=== PATIENT | male | born 1975 | race Hispanic/Latino ===

== ENCOUNTER 2020-03-19 16:48 | Emergency (ER) | payer OTHER, SELFPAY ==
[2020-03-20 14:55] LABS: SARS-CoV-2 MS2 Positive; SARS-CoV-2 N Gene Negative; SARS-CoV-2 S Gene Negative; SARS-CoV-2 orf1ab Negative
== END 2020-03-19 17:34 | disposition home or self-care (01) ==
LOC: ERS 16:48
DX: Z20.828 Contact with and (suspected) exposure to other viral communicable diseases (principal); I25.2 Old myocardial infarction; E11.9 Type 2 diabetes mellitus without complications; I11.0 Hypertensive heart disease with heart failure; I50.9 Heart failure, unspecified; F32.9 Major depressive disorder, single episode, unspecified; F41.9 Anxiety disorder, unspecified; F17.210 Nicotine dependence, cigarettes, uncomplicated
CPT/HCPCS: 87635; 99283; U0003

== ENCOUNTER 2022-03-14 21:35 | Observation (INO) | payer SELFPAY ==
[~2022-03-14 21:35] MED LIST: Iopamidol-370 76% 500 ML 1 ML ONE
[2022-03-14] MEDS ORDERED: Ondansetron PF 4 MG/2 ML Vial ONE (22:16)
[2022-03-14 22:27] LABS: #Basophils 0.1 thou/uL (0.0-0.2); #Eosinphils 0.2 thou/uL (0.0-0.7); #Lymphocytes 2.1 thou/uL (1.20-3.40); #Monocytes 0.8 thou/uL (0.11-0.59); #Neutrophils 5.9 thou/uL (1.40-6.50); %Basophils 0.9 % (0.0-1.0); %Eosinophils 2.7 % (0.0-10.0); %Lymphocytes 23.2 % (21.0-51.0); %Neutrophils 64.2 % (42.0-75.0); Hemoglobin 19.2 g/dL (14.0-18.0); Mean Corpuscular HGB CONC 33.1 g/dL (32.0-36.0); Mean Corpuscular Hemoglobin 30.3 pg (27.0-31.0); Mean Corpuscular Volume 91.6 fL (78.0-98.0); Mean Platelet Volume 7.9 fL (7.4-10.4); Platelet Count 271 thou/uL (130-400); RBC Distribution Width 12.7 % (11.5-14.5); Red Blood Cell (RBC) Count 6.33 mill/uL (4.70-6.10); White Blood Cell (WBC) Count 9.3 thou/uL (4.8-10.8)
[2022-03-14 22:47] LABS: ALT (SGPT) 24 U/L (8-55); AST (SGOT) 18 U/L (5-34); Albumin 4.4 g/dL (3.5-5.0); Alkaline Phosphatase 72 U/L (40-110); Anion Gap 17 mmol/L (10-20); BUN (Urea Nitrogen) 16 mg/dL (8.9-20.6); Bilirubin, Total 0.9 mg/dL (0.2-1.2); Calc. Creatinine Clearance 0 mL/min (70-130); Calcium 9.5 mg/dL (7.8-10.44); Carbon Dioxide 24 mmol/L (22-29); Chloride 104 mmol/L (98-107); Estimated GFR 82; Globulin 3.2 g/dL (2.4-3.5); Glucose 167 mg/dL (70-105); Lipase 18 U/L (8-78); Potassium 3.7 mmol/L (3.5-5.1); Protein, Total 7.6 g/dL (6.0-8.3); Sodium 141 mmol/L (136-145)
[2022-03-14 23:00] LABS: Bacteria/HPF None Seen HPF (None Seen); Bilirubin Negative (Negative); Blood, Urine Negative (Negative); Clarity Clear (Clear); Glucose, Urine (Dipstick) Normal (Negative); Ketone, Urine Trace mg/dL (Negative); Leukocyte Negative Leu/uL (Negative); Nitrite Negative (Negative); Protein, Urine (Dipstick) 100 mg/dL (Neg-Trace); RBC/HPF 0-3 HPF (0-3); Specific Gravity, Urine 1.034 (1.002-1.036); Squamous Epithelial 0-3 HPF (0-3); WBC/HPF 0-3 HPF (0-3)
[2022-03-14] MEDS ORDERED: Aspirin Chewable 81 MG TAB ONE (23:39)
[2022-03-15] MEDS ORDERED: Dextrose 5% in Water 1,000 ML IV PRN (01:39)
[2022-03-15] MEDS ORDERED: HumaLOG 300 UNITS/3 ML VIAL SC PRN ×2 (01:39)
[2022-03-15] MEDS ORDERED: Nitroglycerin 0.4 MG TAB (25 Tab Bottle) SL PRN (01:39)
[2022-03-15] MEDS ORDERED: Dextrose 50% Abboject 50 ML SYRINGE SLOW IVP PRN (01:39)
[2022-03-15 01:45] LABS: Troponin I 0.013 ng/mL (< 0.028)
[2022-03-15] MEDS ORDERED: Acetaminophen 325 MG TAB PO PRN (02:02)
[2022-03-15] MEDS ORDERED: Ondansetron ODT 4 MG TAB PO PRN (02:02)
[2022-03-15] MEDS ORDERED: Ondansetron PF 4 MG/2 ML Vial IVP PRN (02:02)
[2022-03-15] MEDS ORDERED: Electrolyte Replacement Protocol 1 EACH FS SCH (02:15)
[2022-03-15 04:25] LABS: #Basophils 0.1 thou/uL (0.0-0.2); #Eosinphils 0.3 thou/uL (0.0-0.7); #Lymphocytes 2.3 thou/uL (1.20-3.40); #Monocytes 0.9 thou/uL (0.11-0.59); #Neutrophils 4.8 thou/uL (1.40-6.50); %Basophils 0.9 % (0.0-1.0); %Eosinophils 3.7 % (0.0-10.0); %Lymphocytes 27.9 % (21.0-51.0); %Monocytes 10.2 % (0.0-10.0); %Neutrophils 57.2 % (42.0-75.0); Hemoglobin 18.2 g/dL (14.0-18.0); Mean Corpuscular HGB CONC 33.1 g/dL (32.0-36.0); Mean Corpuscular Hemoglobin 30.6 pg (27.0-31.0); Mean Corpuscular Volume 92.4 fL (78.0-98.0); Mean Platelet Volume 7.7 fL (7.4-10.4); Platelet Count 257 thou/uL (130-400); RBC Distribution Width 12.6 % (11.5-14.5); Red Blood Cell (RBC) Count 5.95 mill/uL (4.70-6.10); White Blood Cell (WBC) Count 8.3 thou/uL (4.8-10.8)
[2022-03-15 04:32] LABS: Hemoglobin A1c 8.1 % (4.0-6.0)
[2022-03-15 04:46] VITALS: BMI 40.4
[2022-03-15 04:53] LABS: Troponin I 0.016 ng/mL (< 0.028)
[2022-03-15 04:56] LABS: Anion Gap 13 mmol/L (10-20); BUN (Urea Nitrogen) 14 mg/dL (8.9-20.6); Calc. Creatinine Clearance 169 mL/min (70-130); Carbon Dioxide 26 mmol/L (22-29); Cardiac Risk 5.4 (Less than 4.5); Chloride 107 mmol/L (98-107); Cholesterol 172 mg/dl (< 200 Desired); Estimated GFR 99; Glucose 125 mg/dL (70-105); HDL Cholesterol 32 mg/dL (>60 Neg Risk); LDL Cholesterol, Calculated 112 mg/dL; Potassium 3.8 mmol/L (3.5-5.1); Sodium 142 mmol/L (136-145); Triglycerides 139 mg/dL (Less than 150)
[2022-03-15] MEDS: hydrALAZINE 20 MG/ML VIAL SLOW IVP PRN (05:38)
[2022-03-15] MEDS: Nicotine 14 MG PATCH TD PRN (05:39)
[2022-03-15] MEDS ORDERED: Magnesium 2 GM/50 ML(in water) 2 GM in Premix Bag 1 BAG IVPB SCH (06:00)
[2022-03-15] MEDS ORDERED: Regadenoson 0.4 MG/5 ML SYRINGE ONE ×2 (08:00→09:06)
[2022-03-15] MEDS ORDERED: Aspirin Chewable 81 MG TAB PO SCH (09:00)
[2022-03-15] MEDS: Carvedilol 25 MG TAB PO SCH ×2 (10:50→17:39)
[2022-03-15] MEDS: FLUoxetine HCl 10 MG CAP PO SCH (10:50)
[2022-03-15] MEDS: Aspirin 81 mg Enteric Coated Tablet PO SCH (10:50)
[2022-03-15] MEDS: metFORMIN 500 MG TAB PO SCH ×2 (10:50→17:39)
[2022-03-15] MEDS: Enoxaparin Sodium 40 MG/0.4 ML SYRINGE SC SCH (10:51)
[2022-03-15] MEDS ORDERED: Simvastatin 10 MG TAB PO SCH (21:00)
[2022-03-16] MEDS: hydrALAZINE 20 MG/ML VIAL SLOW IVP PRN ×2 (00:26→04:48)
[2022-03-16 05:21] LABS: #Eosinphils 0.4 thou/uL (0.0-0.7); #Monocytes 0.6 thou/uL (0.11-0.59); #Neutrophils 5.2 thou/uL (1.40-6.50); %Basophils 0.5 % (0.0-1.0); %Eosinophils 4.9 % (0.0-10.0); %Lymphocytes 24.2 % (21.0-51.0); %Monocytes 7.5 % (0.0-10.0); %Neutrophils 62.9 % (42.0-75.0); Hemoglobin 17.4 g/dL (14.0-18.0); Mean Corpuscular HGB CONC 31.2 g/dL (32.0-36.0); Mean Corpuscular Hemoglobin 29.5 pg (27.0-31.0); Mean Corpuscular Volume 94.5 fL (78.0-98.0); Mean Platelet Volume 7.8 fL (7.4-10.4); Platelet Count 267 thou/uL (130-400); RBC Distribution Width 12.6 % (11.5-14.5); Red Blood Cell (RBC) Count 5.89 mill/uL (4.70-6.10); White Blood Cell (WBC) Count 8.3 thou/uL (4.8-10.8)
[2022-03-16 05:50] LABS: Anion Gap 14 mmol/L (10-20); BUN (Urea Nitrogen) 15 mg/dL (8.9-20.6); Calc. Creatinine Clearance 169 mL/min (70-130); Calcium 8.8 mg/dL (7.8-10.44); Carbon Dioxide 24 mmol/L (22-29); Chloride 105 mmol/L (98-107); Estimated GFR 99; Glucose 154 mg/dL (70-105); Sodium 139 mmol/L (136-145)
[2022-03-16] MEDS: metFORMIN 500 MG TAB PO SCH ×2 (08:05→16:14)
[2022-03-16] MEDS: Enoxaparin Sodium 40 MG/0.4 ML SYRINGE SC SCH (08:05)
[2022-03-16] MEDS: FLUoxetine HCl 10 MG CAP PO SCH (08:05)
[2022-03-16] MEDS: Aspirin 81 mg Enteric Coated Tablet PO SCH (08:05)
[2022-03-16] MEDS: Carvedilol 25 MG TAB PO SCH ×2 (08:05→16:14)
[2022-03-16] MEDS: Nicotine 14 MG PATCH TD PRN (14:21)
[2022-03-16 16:07] VITALS: BP 179/80; TEMP 97.6
[2022-03-16] MEDS ORDERED: Atorvastatin Calcium 10 MG TAB PO SCH (21:00)
== END 2022-03-16 17:35 | disposition home or self-care (01) ==
LOC: ERS 21:35 → NEURO 03-15 00:35
PROVIDERS: ADMIT Student in an Organized Health Care Education/Training Program; ATTEND Internal Medicine
DX: U07.1 COVID-19 (principal); I42.8 Other cardiomyopathies; I11.0 Hypertensive heart disease with heart failure; I50.22 Chronic systolic (congestive) heart failure; I25.2 Old myocardial infarction; E11.9 Type 2 diabetes mellitus without complications; E78.5 Hyperlipidemia, unspecified; G47.30 Sleep apnea, unspecified; F17.210 Nicotine dependence, cigarettes, uncomplicated; Z79.4 Long term (current) use of insulin; Z79.82 Long term (current) use of aspirin; Z79.84 Long term (current) use of oral hypoglycemic drugs; Z79.899 Other long term (current) drug therapy
CPT/HCPCS: 36415; 36416; 71045; 74177; 78452; 80048; 80053; 80061; 81003; 81015; 83036; 83690; 83735; 83880; 84443; 84484; 85025; 93005; 93017; 93306; 94760; 96372; 96374; 96375; 96376; A9500; G0378; J0360; J1650; J1815; J2405; J2785; J3475; Q9967; U0003; U0005

== ENCOUNTER 2023-03-05 21:04 | Inpatient (IN) | payer OTHER ==
[2023-03-05] MEDS ORDERED: Nitroglycerin 2% Ointment 1 INCH/1 GM Packet ONE (21:50)
[2023-03-05 21:56] LABS: #Basophils 0.1 thou/uL (0.0-0.2); #Eosinphils 0.4 thou/uL (0.0-0.7); #Monocytes 0.8 thou/uL (0.11-0.59); #Neutrophils 7.8 thou/uL (1.40-6.50); %Basophils 0.7 % (0.0-1.0); %Eosinophils 3.4 % (0.0-10.0); %Lymphocytes 14.9 % (21.0-51.0); %Monocytes 7.6 % (0.0-10.0); %Neutrophils 73.1 % (42.0-75.0); Hemoglobin 16.5 g/dL (14.0-18.0); Mean Corpuscular HGB CONC 34.4 g/dL (32.0-36.0); Mean Corpuscular Hemoglobin 29.3 pg (27.0-31.0); Mean Corpuscular Volume 85.1 fl (78.0-98.0); Mean Platelet Volume 10.2 fL (7.4-10.4); Platelet Count 363 10x3/uL (130-400); RBC Distribution Width 12.1 % (11.5-14.5); Red Blood Cell (RBC) Count 5.64 mill/uL (4.70-6.10); White Blood Cell (WBC) Count 10.7 10x3/uL (4.8-10.8)
[2023-03-05 22:20] LABS: ALT (SGPT) 17 U/L (8-55); AST (SGOT) 12 U/L (5-34); Albumin 3.8 g/dL (3.5-5.0); Alkaline Phosphatase 124 U/L (40-110); Anion Gap 15 mmol/L (10-20); BUN (Urea Nitrogen) 12 mg/dL (8.9-20.6); Bilirubin, Total 0.5 mg/dL (0.2-1.2); Calc. Creatinine Clearance 0 mL/min (70-130); Calcium 9.1 mg/dL (7.8-10.44); Carbon Dioxide 23 mmol/L (22-29); Chloride 100 mmol/L (98-107); Estimated GFR 101; Globulin 2.9 g/dL (2.4-3.5); Potassium 3.8 mmol/L (3.5-5.1); Protein, Total 6.7 g/dL (6.0-8.3); Sodium 134 mmol/L (136-145)
[2023-03-05 22:22] LABS: Glucose 447 mg/dL (70-105)
[2023-03-05 22:40] LABS: CKMB 1.8 ng/mL (0-6.6)
[2023-03-05] MEDS ORDERED: Aspirin Chewable 81 MG TAB ONE (23:15)
[2023-03-06] MEDS ORDERED: Calcium Carbonate 500 MG ChewTAB PO PRN (00:19)
[2023-03-06] MEDS ORDERED: Nitroglycerin 0.4 MG TAB (25 Tab Bottle) SL PRN (00:19)
[2023-03-06] MEDS ORDERED: Dextrose 5% in Water 1,000 ML IV PRN (00:19)
[2023-03-06] MEDS ORDERED: Glucagon 1 MG/ML KIT IM PRN (00:19)
[2023-03-06] MEDS ORDERED: Ondansetron ODT 4 MG TAB PO PRN (00:19)
[2023-03-06] MEDS ORDERED: Dextrose 50% Abboject 50 ML SYRINGE SLOW IVP PRN (00:19)
[2023-03-06] MEDS ORDERED: Insulin Regular 300 UNITS/3 ML VIAL SC PRN (00:19)
[2023-03-06] MEDS ORDERED: Senokot S 8.6-50 MG TAB PO PRN (00:19)
[2023-03-06] MEDS ORDERED: Acetaminophen 325 MG TAB PO PRN (00:19)
[2023-03-06 00:56] LABS: Hemoglobin A1c 11.2 % (4.0-6.0)
[2023-03-06 01:11] LABS: Troponin I 0.049 ng/mL (< 0.028)
[2023-03-06 01:50] LABS: SARS-CoV-2 NAA Rapid Test Not Detected (NotDetected)
[2023-03-06 04:01] LABS: #Basophils 0.1 thou/uL (0.0-0.2); #Eosinphils 0.4 thou/uL (0.0-0.7); #Neutrophils 8.6 thou/uL (1.40-6.50); %Basophils 0.7 % (0.0-1.0); %Eosinophils 3.4 % (0.0-10.0); %Lymphocytes 15.3 % (21.0-51.0); %Monocytes 8.5 % (0.0-10.0); %Neutrophils 71.8 % (42.0-75.0); Hemoglobin 15.2 g/dL (14.0-18.0); Mean Corpuscular HGB CONC 33.9 g/dL (32.0-36.0); Mean Corpuscular Hemoglobin 29.5 pg (27.0-31.0); Mean Platelet Volume 9.9 fL (7.4-10.4); Platelet Count 324 10x3/uL (130-400); RBC Distribution Width 12.1 % (11.5-14.5); Red Blood Cell (RBC) Count 5.15 mill/uL (4.70-6.10)
[2023-03-06 04:28] LABS: Anion Gap 12 mmol/L (10-20); BUN (Urea Nitrogen) 11 mg/dL (8.9-20.6); Calc. Creatinine Clearance 205 mL/min (70-130); Calcium 8.6 mg/dL (7.8-10.44); Carbon Dioxide 24 mmol/L (22-29); Cardiac Risk 4.3 (Less than 4.5); Chloride 104 mmol/L (98-107); Cholesterol 169 mg/dl (< 200 Desired); Estimated GFR 109; Glucose 315 mg/dL (70-105); HDL Cholesterol 39 mg/dL (>60 Neg Risk); LDL Cholesterol, Calculated 103 mg/dL; Potassium 3.8 mmol/L (3.5-5.1); Sodium 136 mmol/L (136-145); Triglycerides 134 mg/dL (Less than 150)
[2023-03-06 04:34] LABS: Troponin I 0.046 ng/mL (< 0.028)
[2023-03-06] MEDS ORDERED: Carvedilol 25 MG TAB PO SCH ×2 (08:00)
[2023-03-06] MEDS: metFORMIN 500 MG TAB PO SCH ×2 (08:35→17:12)
[2023-03-06] MEDS: Lisinopril 20 MG TAB PO SCH (08:35)
[2023-03-06] MEDS: Aspirin 81 mg Enteric Coated Tablet PO SCH (08:35)
[2023-03-06] MEDS: Aspirin Chewable 81 MG TAB PO SCH (08:35)
[2023-03-06] MEDS: HumaLOG 300 UNITS/3 ML VIAL SC PRN ×2 (08:36→11:50)
[2023-03-06] MEDS: Famotidine 20 MG TAB PO SCH ×2 (08:36→21:27)
[2023-03-06] MEDS: Empagliflozin 10 MG TAB PO SCH (08:37)
[2023-03-06] MEDS ORDERED: Atorvastatin Calcium 40 MG TAB PO SCH ×2 (09:00)
[2023-03-06] MEDS: Benzonatate 100 MG CAP PO PRN ×3 (11:50→21:27)
[2023-03-06] MEDS ORDERED: Spironolactone 25 MG TAB PO SCH (16:15)
[2023-03-06] MEDS: Carvedilol 25 MG TAB PO SCH (17:16)
[2023-03-07] MEDS: HumaLOG 300 UNITS/3 ML VIAL SC PRN (06:43)
[2023-03-07] MEDS ORDERED: Spironolactone 25 MG TAB PO SCH (08:00)
[2023-03-07] MEDS ORDERED: Furosemide 40 MG TAB PO SCH (09:00)
[2023-03-07] MEDS ORDERED: Amlodipine 5 MG TAB PO SCH ×2 (09:00)
[2023-03-07 10:08] VITALS: BMI 43.7
[2023-03-07] MEDS: Carvedilol 25 MG TAB PO SCH (10:10)
[2023-03-07] MEDS: metFORMIN 500 MG TAB PO SCH (10:11)
[2023-03-07] MEDS: Aspirin 81 mg Enteric Coated Tablet PO SCH (10:11)
[2023-03-07] MEDS: Aspirin Chewable 81 MG TAB PO SCH (10:12)
[2023-03-07] MEDS: Lisinopril 20 MG TAB PO SCH (10:12)
[2023-03-07] MEDS: Empagliflozin 10 MG TAB PO SCH (10:12)
[2023-03-07] MEDS: Benzonatate 100 MG CAP PO PRN (10:12)
[2023-03-07] MEDS: Famotidine 20 MG TAB PO SCH (10:12)
[2023-03-07 12:30] VITALS: BP 171/97; TEMP 98.6
[2023-03-07] MEDS ORDERED: hydrALAZINE 25 MG TAB PO PRN (12:48)
[2023-03-08] MEDS ORDERED: Valsartan 80 MG TAB PO SCH (09:00)
[2023-03-08] MEDS ORDERED: NIFEdipine XL 90 MG TAB PO SCH (09:00)
== END 2023-03-07 14:55 | disposition home or self-care (01) | DRG 305 ==
LOC: ERS 21:04 → 2SW 23:29 → OBSVTOIN 03-07 14:10
PROVIDERS: ADMIT Student in an Organized Health Care Education/Training Program; ATTEND Internal Medicine
DX: I16.0 Hypertensive urgency (principal); I50.32 Chronic diastolic (congestive) heart failure; Z68.41 Body mass index [BMI] 40.0-44.9, adult; I42.8 Other cardiomyopathies; E11.9 Type 2 diabetes mellitus without complications; G47.33 Obstructive sleep apnea (adult) (pediatric); I25.10 Atherosclerotic heart disease of native coronary artery without angina pectoris; I11.0 Hypertensive heart disease with heart failure; F17.210 Nicotine dependence, cigarettes, uncomplicated; E66.01 Morbid (severe) obesity due to excess calories; Z20.822 Contact with and (suspected) exposure to COVID-19; Z86.16 Personal history of COVID-19; Z98.890 Other specified postprocedural states; Z83.3 Family history of diabetes mellitus; Z79.84 Long term (current) use of oral hypoglycemic drugs; Z79.82 Long term (current) use of aspirin; I25.2 Old myocardial infarction; Z79.899 Other long term (current) drug therapy
CPT/HCPCS: 36415; 36416; 71045; 80048; 80053; 80061; 82553; 83036; 83880; 84484; 85025; 93005; 93010; 93306; G0378; J1815

== ENCOUNTER 2023-03-08 14:25 | Emergency (ER) | payer OTHER ==
[2023-03-08 15:02] LABS: #Basophils 0.1 thou/uL (0.0-0.2); #Eosinphils 0.1 thou/uL (0.0-0.7); #Monocytes 0.9 thou/uL (0.11-0.59); #Neutrophils 10.8 thou/uL (1.40-6.50); %Basophils 0.5 % (0.0-1.0); %Eosinophils 0.5 % (0.0-10.0); %Lymphocytes 11.5 % (21.0-51.0); %Monocytes 6.4 % (0.0-10.0); %Neutrophils 80.6 % (42.0-75.0); Hemoglobin 18.4 g/dL (14.0-18.0); Mean Corpuscular Hemoglobin 29.5 pg (27.0-31.0); Mean Corpuscular Volume 86.7 fl (78.0-98.0); Mean Platelet Volume 9.9 fL (7.4-10.4); Platelet Count 457 10x3/uL (130-400); RBC Distribution Width 12.3 % (11.5-14.5); Red Blood Cell (RBC) Count 6.24 mill/uL (4.70-6.10); White Blood Cell (WBC) Count 13.3 10x3/uL (4.8-10.8)
[2023-03-08] MEDS ORDERED: Ondansetron PF 4 MG/2 ML Vial ONE (15:22)
[2023-03-08] MEDS ORDERED: Acetaminophen 500 MG TAB ONE (15:32)
[2023-03-08 15:38] LABS: ALT (SGPT) 17 U/L (8-55); AST (SGOT) 13 U/L (5-34); Albumin 4.3 g/dL (3.5-5.0); Alkaline Phosphatase 99 U/L (40-110); Anion Gap 16 mmol/L (10-20); BUN (Urea Nitrogen) 18 mg/dL (8.9-20.6); Bilirubin, Total 0.9 mg/dL (0.2-1.2); Calc. Creatinine Clearance 0 mL/min (70-130); Carbon Dioxide 24 mmol/L (22-29); Chloride 103 mmol/L (98-107); Estimated GFR 79; Globulin 3.6 g/dL (2.4-3.5); Glucose 264 mg/dL (70-105); Potassium 4.1 mmol/L (3.5-5.1); Protein, Total 7.9 g/dL (6.0-8.3); Sodium 139 mmol/L (136-145)
[2023-03-08] MEDS ORDERED: Meclizine HCl 25 MG TAB ONE (19:02)
[2023-03-08 19:09] LABS: Bacteria/HPF None Seen HPF (None Seen); Bilirubin Negative (Negative); Blood, Urine Negative (Negative); CAUTI Indications for Culture Dysuria,urgency,freq; Clarity Clear (Clear); Glucose, Urine (Dipstick) Greater than 1000 mg/dL (Negative); Ketone, Urine 10 mg/dL (Negative); Leukocyte 75 Leu/uL (Negative); Nitrite Negative (Negative); Protein, Urine (Dipstick) 100 mg/dL (Neg-Trace); RBC/HPF 0-3 HPF (0-3); Specific Gravity, Urine 1.044 (1.002-1.036); Squamous Epithelial 0-3 HPF (0-3); Urobilinogen Normal mg/dL (Less than 2); Yeast-Budding 1+ HPF (None Seen); pH, Urine 5.5 (5.0-9.0)
[2023-03-08 19:12] LABS: Urine Culture Reflex No No
== END 2023-03-08 19:49 | disposition home or self-care (01) ==
LOC: ERS 14:25
DX: R42 Dizziness and giddiness (principal); D72.829 Elevated white blood cell count, unspecified; E11.9 Type 2 diabetes mellitus without complications; I11.0 Hypertensive heart disease with heart failure; I50.9 Heart failure, unspecified; F17.210 Nicotine dependence, cigarettes, uncomplicated; Z79.84 Long term (current) use of oral hypoglycemic drugs
CPT/HCPCS: 36415; 36416; 80053; 81001; 85025; 93005; 96374; J2405

== ENCOUNTER 2023-03-22 11:07 | Emergency (ER) | payer OTHER ==
[2023-03-22 12:20] LABS: #Basophils 0.1 thou/uL (0.0-0.2); #Eosinphils 0.3 thou/uL (0.0-0.7); #Monocytes 0.5 thou/uL (0.11-0.59); #Neutrophils 7.9 thou/uL (1.40-6.50); %Basophils 0.8 % (0.0-1.0); %Lymphocytes 12.2 % (21.0-51.0); %Monocytes 4.6 % (0.0-10.0); Hemoglobin 16.1 g/dL (14.0-18.0); Mean Corpuscular HGB CONC 33.3 g/dL (32.0-36.0); Mean Corpuscular Hemoglobin 29.5 pg (27.0-31.0); Mean Corpuscular Volume 88.5 fl (78.0-98.0); Mean Platelet Volume 9.9 fL (7.4-10.4); Platelet Count 363 10x3/uL (130-400); RBC Distribution Width 12.5 % (11.5-14.5); Red Blood Cell (RBC) Count 5.46 mill/uL (4.70-6.10)
[2023-03-22 12:37] LABS: ALT (SGPT) 23 U/L (8-55); AST (SGOT) 18 U/L (5-34); Albumin 3.9 g/dL (3.5-5.0); Alkaline Phosphatase 88 U/L (40-110); Anion Gap 13 mmol/L (10-20); BUN (Urea Nitrogen) 11 mg/dL (8.9-20.6); Bilirubin, Total 0.9 mg/dL (0.2-1.2); Calc. Creatinine Clearance 0 mL/min (70-130); Carbon Dioxide 20 mmol/L (22-29); Chloride 106 mmol/L (98-107); Estimated GFR 91; Globulin 2.4 g/dL (2.4-3.5); Glucose 374 mg/dL (70-105); Lipase 26 U/L (8-78); Potassium 4.1 mmol/L (3.5-5.1); Protein, Total 6.3 g/dL (6.0-8.3); Sodium 135 mmol/L (136-145)
[2023-03-22] MEDS ORDERED: Aspirin Chewable 81 MG TAB ONE (14:00)
[2023-03-22] MEDS ORDERED: HYDROcodone/Acetaminophen 5/325 mg Tablet ONE (14:00)
== END 2023-03-22 15:39 | disposition home or self-care (01) ==
LOC: ERS 11:07
DX: R07.9 Chest pain, unspecified (principal); M54.50 Low back pain, unspecified; F17.210 Nicotine dependence, cigarettes, uncomplicated; E11.9 Type 2 diabetes mellitus without complications; I11.0 Hypertensive heart disease with heart failure; I50.9 Heart failure, unspecified; Z79.84 Long term (current) use of oral hypoglycemic drugs; Z79.899 Other long term (current) drug therapy
CPT/HCPCS: 36415; 71045; 80053; 83690; 83880; 84484; 85025; 93005

== ENCOUNTER 2023-04-08 13:30 | Emergency (ER) | payer OTHER ==
[2023-04-08 14:17] LABS: #Basophils 0.1 thou/uL (0.0-0.2); #Eosinphils 0.2 thou/uL (0.0-0.7); #Monocytes 0.5 thou/uL (0.11-0.59); #Neutrophils 9.5 thou/uL (1.40-6.50); %Basophils 0.5 % (0.0-1.0); %Eosinophils 1.3 % (0.0-10.0); %Lymphocytes 11.6 % (21.0-51.0); %Monocytes 4.1 % (0.0-10.0); %Neutrophils 82.2 % (42.0-75.0); Hematocrit 45.7 % (42.0-52.0); Hemoglobin 15.7 g/dL (14.0-18.0); Mean Corpuscular HGB CONC 34.4 g/dL (32.0-36.0); Mean Corpuscular Hemoglobin 29.8 pg (27.0-31.0); Mean Corpuscular Volume 86.9 fl (78.0-98.0); Mean Platelet Volume 9.7 fL (7.4-10.4); Platelet Count 336 10x3/uL (130-400); RBC Distribution Width 12.5 % (11.5-14.5); Red Blood Cell (RBC) Count 5.26 mill/uL (4.70-6.10); White Blood Cell (WBC) Count 11.6 10x3/uL (4.8-10.8)
[2023-04-08 14:42] LABS: Troponin I 0.015 ng/mL (< 0.028)
[2023-04-08 14:50] LABS: ALT (SGPT) 23 U/L (8-55); AST (SGOT) 20 U/L (5-34); Albumin 4.2 g/dL (3.5-5.0); Alkaline Phosphatase 84 U/L (40-110); Anion Gap 14 mmol/L (10-20); BUN (Urea Nitrogen) 18 mg/dL (8.9-20.6); Bilirubin, Total 0.7 mg/dL (0.2-1.2); Calc. Creatinine Clearance 0 mL/min (70-130); Calcium 9.1 mg/dL (7.8-10.44); Carbon Dioxide 22 mmol/L (22-29); Chloride 105 mmol/L (98-107); Estimated GFR 61; Globulin 2.6 g/dL (2.4-3.5); Glucose 214 mg/dL (70-105); Lipase 44 U/L (8-78); Potassium 3.8 mmol/L (3.5-5.1); Protein, Total 6.8 g/dL (6.0-8.3); Sodium 137 mmol/L (136-145)
[2023-04-08] MEDS ORDERED: Aspirin Chewable 81 MG TAB ONE (16:50)
[2023-04-08 17:40] LABS: Troponin I 0.014 ng/mL (< 0.028)
== END 2023-04-08 17:48 | disposition home or self-care (01) ==
LOC: ERS 13:30
DX: R07.9 Chest pain, unspecified (principal); I11.0 Hypertensive heart disease with heart failure; F17.210 Nicotine dependence, cigarettes, uncomplicated; I50.9 Heart failure, unspecified; E11.9 Type 2 diabetes mellitus without complications; Z79.899 Other long term (current) drug therapy
CPT/HCPCS: 71045; 80053; 83690; 84484; 85025; 93005; 94760

== ENCOUNTER 2023-11-08 19:27 | Emergency (ER) | payer MEDICARE, OTHER ==
[2023-11-08 20:20] LABS: #Basophils 0.1 thou/uL (0.0-0.2); #Eosinphils 0.7 thou/uL (0.0-0.7); #Monocytes 0.6 thou/uL (0.11-0.59); #Neutrophils 6.1 thou/uL (1.40-6.50); %Basophils 0.9 % (0.0-1.0); %Eosinophils 7.5 % (0.0-10.0); %Lymphocytes 21.7 % (21.0-51.0); %Monocytes 6.3 % (0.0-10.0); %Neutrophils 63.2 % (42.0-75.0); Hematocrit 45.6 % (42.0-52.0); Hemoglobin 15.9 g/dL (14.0-18.0); Mean Corpuscular HGB CONC 34.9 g/dL (32.0-36.0); Mean Corpuscular Hemoglobin 30.3 pg (27.0-31.0); Mean Platelet Volume 9.6 fL (7.4-10.4); Platelet Count 380 10x3/uL (130-400); RBC Distribution Width 13.1 % (11.5-14.5); Red Blood Cell (RBC) Count 5.24 mill/uL (4.70-6.10); White Blood Cell (WBC) Count 9.6 10x3/uL (4.8-10.8)
[2023-11-08 20:37] LABS: ALT (SGPT) 13 U/L (8-55); AST (SGOT) 10 U/L (5-34); Albumin 3.6 g/dL (3.5-5.0); Alkaline Phosphatase 102 U/L (40-110); Anion Gap 13 mmol/L (10-20); BUN (Urea Nitrogen) 17 mg/dL (8.9-20.6); Bilirubin, Total 0.5 mg/dL (0.2-1.2); Calc. Creatinine Clearance 0 mL/min (70-130); Calcium 8.9 mg/dL (7.8-10.44); Carbon Dioxide 22 mmol/L (22-29); Chloride 106 mmol/L (98-107); Estimated GFR 70; Globulin 2.7 g/dL (2.4-3.5); Glucose 313 mg/dL (70-105); Lipase 23 U/L (8-78); Potassium 3.9 mmol/L (3.5-5.1); Protein, Total 6.3 g/dL (6.0-8.3); Sodium 137 mmol/L (136-145)
[2023-11-08 20:41] LABS: Troponin I 0.024 ng/mL (< 0.028)
== END 2023-11-08 22:26 | disposition home or self-care (01) ==
LOC: ERS 19:27
DX: R07.89 Other chest pain (principal); E11.65 Type 2 diabetes mellitus with hyperglycemia; I11.0 Hypertensive heart disease with heart failure; I50.9 Heart failure, unspecified; I25.2 Old myocardial infarction; F17.210 Nicotine dependence, cigarettes, uncomplicated; Z79.84 Long term (current) use of oral hypoglycemic drugs; Z79.899 Other long term (current) drug therapy
CPT/HCPCS: 36415; 71045; 80053; 83690; 83880; 84484; 85025; 85379; 93005

== ENCOUNTER 2024-03-04 12:56 | Emergency (ER) | payer OTHER, SELFPAY ==
[2024-03-04] MEDS ORDERED: Boostrix 0.5 ML (Tdap) VIAL (>/=7 yrs of age) ONE (13:13)
== END 2024-03-04 14:44 | disposition home or self-care (01) ==
LOC: ERS 12:56
DX: T23.171A Burn of first degree of right wrist, initial encounter (principal); E11.9 Type 2 diabetes mellitus without complications; I11.0 Hypertensive heart disease with heart failure; I50.9 Heart failure, unspecified; Z79.84 Long term (current) use of oral hypoglycemic drugs; Z23 Encounter for immunization; Z79.899 Other long term (current) drug therapy; W31.82XA Contact with other commercial machinery, initial encounter
CPT/HCPCS: 90471; 90715

== ENCOUNTER 2025-04-25 07:03 | Inpatient (IN) | payer BC, SELFPAY ==
[2025-04-25 08:54] LABS: #Basophils 0.07 10x3/uL (0.0-0.2); #Eosinophils 0.24 10x3/uL (0.0-0.7); #Monocytes 0.61 10x3/uL (0.11-0.59); #Neutrophils 6.38 10x3/uL (1.40-6.50); %Basophils 0.8 % (0.0-1.0); %Eosinophils 2.7 % (0.0-10.0); %Lymphocytes 16.5 % (21.0-51.0); %Monocytes 7.0 % (0.0-10.0); %Neutrophils 72.8 % (42.0-75.0); Hematocrit 45.0 % (42.0-52.0); Hemoglobin 15.2 g/dL (14.0-18.0); Mean Corpuscular Hemoglobin 29.5 pg (27.0-31.0); Mean Corpuscular Volume 87.2 fL (78.0-98.0); Platelet Count 304 10x3/uL (130-400); Red Blood Cell (RBC) Count 5.16 mill/uL (4.70-6.10); White Blood Cell (WBC) Count 8.77 10x3/uL (4.8-10.8)
[2025-04-25] MEDS ORDERED: Acetaminophen 500 MG TAB ONE (09:17)
[2025-04-25 09:18] LABS: INR-International Normal Ratio 1.0; PTT 40.3 sec (22.9-36.1); Prothrombin Time 13.7 sec (12.0-14.7)
[2025-04-25 09:24] LABS: ALT (SGPT) 45 U/L (Less than 45); AST (SGOT) 29 U/L (11-34); Albumin 3.6 g/dL (3.1-4.5); Alkaline Phosphatase 86 U/L (40-110); Anion Gap 13 mmol/L (10-20); BUN (Urea Nitrogen) 11 mg/dL (8.9-20.6); Bilirubin, Total 0.8 mg/dL (0.3-1.2); Calc. Creatinine Clearance 0 mL/min (70-130); Calcium 8.4 mg/dL (7.8-10.44); Carbon Dioxide 23 mmol/L (22-29); Chloride 104 mmol/L (98-107); Globulin 2.5 g/dL (2.4-3.5); Glucose 353 mg/dL (70-105); Magnesium 2.0 mg/dL (1.6-2.6); Potassium 4.1 mmol/L (3.5-5.1); Sodium 136 mmol/L (136-145)
[2025-04-25] MEDS ORDERED: hydrALAZINE 20 MG/ML VIAL ONE (10:13)
[2025-04-25] MEDS ORDERED: Aspirin Chewable 81 MG TAB ONE (10:13)
[2025-04-25] MEDS ORDERED: hydrALAZINE 20 MG/ML VIAL SLOW IVP PRN (10:40)
[2025-04-25 10:42] LABS: Actual Bicarbonate (HCO3v) 22.2 mEq/L (22-28); Base Excess -2.7 mEq/L (-2.0 to +3.0); Calcium, Ionized (venous) 1.14 mmol/L (1.16-1.32); Chloride (VBG) 101 mmol/L (98-106); Hematocrit-VBG 50 % (42.0-52.0); Hemoglobin (Hb) 17.0 g/dL (13.1-17.2); Potassium (VBG) 4.05 mmol/L (3.70-5.30); Sodium 137 mmol/L (133-146)
[2025-04-25] MEDS ORDERED: Melatonin 3 MG TAB PO PRN (10:44)
[2025-04-25] MEDS ORDERED: Senokot S 8.6-50 MG TAB PO PRN (10:44)
[2025-04-25] MEDS ORDERED: Guaifenesin DM 100-10/5 ML UDCUP PO PRN (10:44)
[2025-04-25] MEDS ORDERED: Ondansetron PF 4 MG/2 ML Vial IVP PRN (10:44)
[2025-04-25] MEDS ORDERED: Electrolyte Replacement Protocol 1 EACH FS SCH (10:45)
[2025-04-25] MEDS ORDERED: Dextrose 50% Abboject 50 ML SYRINGE SLOW IVP PRN (11:24)
[2025-04-25] MEDS ORDERED: Glucagon 1 MG/ML KIT IM PRN (11:24)
[2025-04-25 11:48] VITALS: BMI 40.6
[2025-04-25] MEDS ORDERED: Iopamidol-370 76% 500 ML MDV (1 ML CHARGE) ONE (12:48)
[2025-04-25] MEDS: Magnesium 2 GM/50 ML(in water) 2 GM in Premix 1 BAG IVPB SCH (15:20)
[2025-04-25] MEDS: Enoxaparin 40 MG (0.4 mL) SYRINGE SC SCH (15:20)
[2025-04-25] MEDS: Famotidine 20 MG TAB PO SCH (20:58)
[2025-04-26 04:39] LABS: #Basophils 0.06 10x3/uL (0.0-0.2); #Eosinophils 0.46 10x3/uL (0.0-0.7); #Monocytes 0.65 10x3/uL (0.11-0.59); #Neutrophils 6.59 10x3/uL (1.40-6.50); %Basophils 0.6 % (0.0-1.0); %Eosinophils 4.9 % (0.0-10.0); %Lymphocytes 16.9 % (21.0-51.0); %Monocytes 6.9 % (0.0-10.0); %Neutrophils 70.5 % (42.0-75.0); Hematocrit 46.9 % (42.0-52.0); Hemoglobin 15.7 g/dL (14.0-18.0); Mean Corpuscular Hemoglobin 29.6 pg (27.0-31.0); Mean Corpuscular Volume 88.5 fL (78.0-98.0); Platelet Count 320 10x3/uL (130-400); Red Blood Cell (RBC) Count 5.30 mill/uL (4.70-6.10); White Blood Cell (WBC) Count 9.36 10x3/uL (4.8-10.8)
[2025-04-26 05:15] LABS: ALT (SGPT) 42 U/L (Less than 45); AST (SGOT) 38 U/L (11-34); Albumin 3.6 g/dL (3.1-4.5); Anion Gap 10 mmol/L (10-20); BUN (Urea Nitrogen) 17 mg/dL (8.9-20.6); Bilirubin, Total 0.5 mg/dL (0.3-1.2); Calc. Creatinine Clearance 193 mL/min (70-130); Calcium 8.1 mg/dL (7.8-10.44); Carbon Dioxide 22 mmol/L (22-29); Cardiac Risk 5.7 (Less than 4.5); Chloride 108 mmol/L (98-107); Cholesterol 183 mg/dl (< 200 Desired); Globulin 2.9 g/dL (2.4-3.5); Glucose 325 mg/dL (70-105); HDL Cholesterol 32 mg/dL (>60 Neg Risk); LDL Cholesterol, Calculated 90 mg/dL; Potassium 4.0 mmol/L (3.5-5.1); Sodium 136 mmol/L (136-145); Triglycerides 307 mg/dL (Less than 150)
[2025-04-26 07:24] LABS: Alkaline Phosphatase 101 U/L (40-110)
[2025-04-26] MEDS: Enoxaparin 40 MG (0.4 mL) SYRINGE SC SCH (07:58)
[2025-04-26] MEDS: Aspirin 81 mg Enteric Coated Tablet PO SCH (07:59)
[2025-04-26 12:16] LABS: Cocaine Metabolite Screen Negative (Negative); THC/Cannabinoid Screen Negative (Negative); Tricyclic Screen Negative (Negative)
[2025-04-26] MEDS: Acetaminophen/Codeine 30-300mg Tablet PO PRN (18:09)
[2025-04-26] MEDS: Carvedilol 6.25 MG TAB PO SCH (20:23)
[2025-04-26] MEDS: Insulin Glargine 30 UNITS/0.3 ML VIAL SC SCH (20:24)
[2025-04-27 04:23] LABS: #Basophils 0.09 10x3/uL (0.0-0.2); #Eosinophils 0.51 10x3/uL (0.0-0.7); #Monocytes 0.66 10x3/uL (0.11-0.59); #Neutrophils 5.34 10x3/uL (1.40-6.50); %Basophils 1.0 % (0.0-1.0); %Eosinophils 5.8 % (0.0-10.0); %Lymphocytes 24.2 % (21.0-51.0); %Monocytes 7.6 % (0.0-10.0); %Neutrophils 61.2 % (42.0-75.0); Hematocrit 47.3 % (42.0-52.0); Hemoglobin 15.4 g/dL (14.0-18.0); Mean Corpuscular Hemoglobin 28.9 pg (27.0-31.0); Mean Corpuscular Volume 88.9 fL (78.0-98.0); Platelet Count 309 10x3/uL (130-400); Red Blood Cell (RBC) Count 5.32 mill/uL (4.70-6.10); White Blood Cell (WBC) Count 8.73 10x3/uL (4.8-10.8)
[2025-04-27 04:39] LABS: Anion Gap 12 mmol/L (10-20); BUN (Urea Nitrogen) 14 mg/dL (8.9-20.6); Calc. Creatinine Clearance 218 mL/min (70-130); Calcium 8.4 mg/dL (7.8-10.44); Carbon Dioxide 23 mmol/L (22-29); Chloride 106 mmol/L (98-107); Glucose 194 mg/dL (70-105); Potassium 3.8 mmol/L (3.5-5.1); Sodium 137 mmol/L (136-145)
[2025-04-27] MEDS: Carvedilol 6.25 MG TAB PO SCH (08:24)
[2025-04-27] MEDS: Valsartan 80 MG TAB PO SCH (14:44)
[2025-04-27] MEDS: NIFEdipine XL 30 MG ER.TAB PO SCH (14:44)
[2025-04-28] MEDS: PNEUMOC 20-VAL CONJ-DIP CRM/PF 0.5 ML SYRINGE IM ONE (09:21)
[2025-04-28] MEDS: NIFEdipine XL 30 MG ER.TAB PO SCH (09:28)
[2025-04-28] MEDS: Valsartan 80 MG TAB PO SCH ×2 (09:28→12:23)
[2025-04-28 12:21] VITALS: BP 161/85; TEMP 97.9
== END 2025-04-28 15:50 | disposition home or self-care (01) | DRG 69 ==
LOC: ERS 07:03 → ERHOLD 10:18 → 2SE 14:57 → OBSVTOIN 04-26 16:16
PROVIDERS: ADMIT Internal Medicine; ATTEND Internal Medicine
PROC: 3E0234Z Introduction of Serum, Toxoid and Vaccine into Muscle, Percutaneous Approach (ICD-10-PCS; principal; 2025-04-28)
DX: G45.9 Transient cerebral ischemic attack, unspecified (principal); I42.8 Other cardiomyopathies; I16.0 Hypertensive urgency; I25.119 Atherosclerotic heart disease of native coronary artery with unspecified angina pectoris; E78.5 Hyperlipidemia, unspecified; F41.9 Anxiety disorder, unspecified; F32.A Depression, unspecified; F17.210 Nicotine dependence, cigarettes, uncomplicated; E66.9 Obesity, unspecified; G47.33 Obstructive sleep apnea (adult) (pediatric); I25.2 Old myocardial infarction; Z98.890 Other specified postprocedural states; R29.898 Other symptoms and signs involving the musculoskeletal system; R20.2 Paresthesia of skin; Z23 Encounter for immunization; Z90.49 Acquired absence of other specified parts of digestive tract; E11.65 Type 2 diabetes mellitus with hyperglycemia; Z91.148 Patient's other noncompliance with medication regimen for other reason; I11.0 Hypertensive heart disease with heart failure; I50.9 Heart failure, unspecified; R29.701 NIHSS score 1
CPT/HCPCS: 36415; 36416; 70496; 70498; 70551; 71045; 80048; 80053; 80061; 80306; 82805; 83036; 83605; 83735; 83880; 84443; 84484; 85025; 85610; 85730; 90471; 90677; 93005; 93306; 96372; 96374; 96375; G0009; G0378; J0360; J1650; J1815; J2060; J3475; Q9967

== ENCOUNTER 2025-04-29 22:39 | Observation (INO) | payer SELFPAY ==
[2025-04-29 23:07] LABS: #Basophils 0.08 10x3/uL (0.0-0.2); #Eosinophils 0.63 10x3/uL (0.0-0.7); #Monocytes 0.71 10x3/uL (0.11-0.59); #Neutrophils 7.43 10x3/uL (1.40-6.50); %Basophils 0.7 % (0.0-1.0); %Eosinophils 5.7 % (0.0-10.0); %Lymphocytes 19.0 % (21.0-51.0); %Monocytes 6.5 % (0.0-10.0); %Neutrophils 67.7 % (42.0-75.0); Hematocrit 49.0 % (42.0-52.0); Hemoglobin 16.2 g/dL (14.0-18.0); Mean Corpuscular Hemoglobin 29.4 pg (27.0-31.0); Mean Corpuscular Volume 88.9 fL (78.0-98.0); Platelet Count 366 10x3/uL (130-400); Red Blood Cell (RBC) Count 5.51 mill/uL (4.70-6.10); White Blood Cell (WBC) Count 10.97 10x3/uL (4.8-10.8)
[2025-04-29 23:34] LABS: ALT (SGPT) 52 U/L (Less than 45); AST (SGOT) 34 U/L (11-34); Albumin 3.9 g/dL (3.1-4.5); Alkaline Phosphatase 105 U/L (40-110); Anion Gap 12 mmol/L (10-20); BUN (Urea Nitrogen) 13 mg/dL (8.9-20.6); Bilirubin, Total 0.6 mg/dL (0.3-1.2); Calc. Creatinine Clearance 0 mL/min (70-130); Calcium 8.8 mg/dL (7.8-10.44); Carbon Dioxide 22 mmol/L (22-29); Chloride 104 mmol/L (98-107); Globulin 3.1 g/dL (2.4-3.5); Glucose 409 mg/dL (70-105); Potassium 4.0 mmol/L (3.5-5.1); Sodium 134 mmol/L (136-145)
[2025-04-29 23:45] LABS: Osmolality, Serum 302 mOsm/kg (275-295)
[2025-04-30 01:45] LABS: Actual Bicarbonate (HCO3v) 24.9 mEq/L (22-28); Base Excess 0.1 mEq/L (-2.0 to +3.0); Calcium, Ionized (venous) 1.13 mmol/L (1.16-1.32); Chloride (VBG) 101 mmol/L (98-106); Hematocrit-VBG 48 % (42.0-52.0); Hemoglobin (Hb) 16.2 g/dL (13.1-17.2); Potassium (VBG) 3.90 mmol/L (3.70-5.30); Sodium 137 mmol/L (133-146)
[2025-04-30] MEDS ORDERED: Aspirin 325 MG TAB ONE (02:41)
[2025-04-30] MEDS ORDERED: Acetaminophen 325 MG TAB PO PRN (03:27)
[2025-04-30] MEDS ORDERED: Dextrose 50% Abboject 50 ML SYRINGE SLOW IVP PRN (03:27)
[2025-04-30] MEDS ORDERED: Glucagon 1 MG/ML KIT IM PRN (03:27)
[2025-04-30] MEDS ORDERED: Ondansetron PF 4 MG/2 ML Vial IVP PRN (03:27)
[2025-04-30 04:20] VITALS: BMI 42.5
[2025-04-30 05:34] LABS: #Basophils 0.07 10x3/uL (0.0-0.2); #Eosinophils 0.60 10x3/uL (0.0-0.7); #Monocytes 0.84 10x3/uL (0.11-0.59); #Neutrophils 6.08 10x3/uL (1.40-6.50); %Basophils 0.7 % (0.0-1.0); %Eosinophils 6.1 % (0.0-10.0); %Lymphocytes 21.9 % (21.0-51.0); %Monocytes 8.6 % (0.0-10.0); %Neutrophils 62.3 % (42.0-75.0); Hematocrit 46.2 % (42.0-52.0); Hemoglobin 15.7 g/dL (14.0-18.0); Mean Corpuscular Hemoglobin 29.8 pg (27.0-31.0); Mean Corpuscular Volume 87.7 fL (78.0-98.0); Platelet Count 337 10x3/uL (130-400); Red Blood Cell (RBC) Count 5.27 mill/uL (4.70-6.10); White Blood Cell (WBC) Count 9.77 10x3/uL (4.8-10.8)
[2025-04-30 05:46] LABS: Anion Gap 12 mmol/L (10-20); BUN (Urea Nitrogen) 12 mg/dL (8.9-20.6); Calc. Creatinine Clearance 209 mL/min (70-130); Calcium 8.4 mg/dL (7.8-10.44); Carbon Dioxide 25 mmol/L (22-29); Chloride 106 mmol/L (98-107); Glucose 202 mg/dL (70-105); Potassium 4.0 mmol/L (3.5-5.1); Sodium 139 mmol/L (136-145)
[2025-04-30] MEDS: Nitroglycerin 0.4 MG TAB (25 Tab Bottle) SL PRN (06:08)
[2025-04-30] MEDS: Enoxaparin 40 MG (0.4 mL) SYRINGE SC SCH (07:46)
[2025-04-30] MEDS: Aspirin 81 mg Enteric Coated Tablet PO SCH (07:46)
[2025-04-30] MEDS: Carvedilol 6.25 MG TAB PO SCH (07:46)
[2025-04-30] MEDS: Insulin Glargine 30 UNITS/0.3 ML VIAL SC SCH (08:29)
[2025-04-30] MEDS: Valsartan 80 MG TAB PO SCH (10:52)
[2025-04-30] MEDS: NIFEdipine XL 90 MG ER.TAB PO SCH (10:52)
[2025-04-30 11:30] VITALS: BP 155/86; TEMP 98.2
[2025-04-30] MEDS ORDERED: metFORMIN 500 MG TAB PO SCH (17:00)
[2025-05-01] MEDS ORDERED: Spironolactone 25 MG TAB PO SCH (08:00)
== END 2025-04-30 17:10 | disposition home or self-care (01) ==
LOC: ERS 22:39 → 2SE 04-30 03:04
PROVIDERS: ADMIT Internal Medicine; ATTEND Hospitalist
DX: R07.89 Other chest pain (principal); E11.65 Type 2 diabetes mellitus with hyperglycemia; E78.5 Hyperlipidemia, unspecified; I25.10 Atherosclerotic heart disease of native coronary artery without angina pectoris; I10 Essential (primary) hypertension; F41.9 Anxiety disorder, unspecified; F32.A Depression, unspecified; F17.210 Nicotine dependence, cigarettes, uncomplicated; Z86.73 Personal history of transient ischemic attack (TIA), and cerebral infarction without residual deficits; Z90.89 Acquired absence of other organs; Z90.49 Acquired absence of other specified parts of digestive tract; Z79.84 Long term (current) use of oral hypoglycemic drugs; Z79.82 Long term (current) use of aspirin; Z79.4 Long term (current) use of insulin; Z79.899 Other long term (current) drug therapy
CPT/HCPCS: 36415; 36416; 71045; 80048; 80053; 82010; 82805; 83930; 84484; 85025; 93005; 96372; G0378; J1650; J1815